=== PATIENT | male | born 1950 | race Caucasian/White ===

== ENCOUNTER 2017-10-30 14:32 | Emergency (ER) | payer MEDICARE, OTHER ==
--- NOTE | 2017-10-30 14:58 | ED Physician Documentation ---
Nausea/Vomiting/Diarrhea - HISTORIAN Historian: patient - HPI Stated Complaint: vomiting Chief Complaint: Nausea,Vomiting,Diarrhea Onset: hours (3) Duration: other (improved over last hour per pt ) Last known Well Date: 10/29/17 Last Known Well Time: 10:00 Last known Well Code/Unknown Code: Unknown Timing: gradual onset Context: denies: out of country travel, bad food, recent trauma Severity: mild Further Comments: yes (He states about 2-3 hours ago he did have 3-4 episodes of vomiting. he states he has no fever. No food expsosures. No sick contacts. He states that he has had no nasuea for about one hour . No complaints at this time. He is worried his b./p is too low. He did eat breakfast and a snack about one hour ago) - Associated Symptoms Vomiting: mild Diarrhea: mild (over last week "more loose than usual" stools ) Abdominal Pain: none - ROS CONST: none CVS/RESP: denies: shortness of breath, cough MS/SKIN/LYMPH: denies: rash NEURO/PSYCH: denies: headache, fainting - PAST HX Past History: other (HTN, hyperlipidemia , GERD ) Surgeries/Procedures: none Immunizations: UTD Allergies/Adverse Reactions: Allergies Allergy/AdvReac Type Severity Reaction Status Date / Time No Known Allergies Allergy Verified 10/30/17 14:51 Home Medications: Ambulatory Orders Medication Instructions Recorded Atorvastatin Calcium [Atorvastatin 40 mg PO DAILY 10/30/17 Calcium] Levothyroxine Sodium [Synthroid] 50 mcg PO DAILY 10/30/17 amLODIPine BESYLATE [Norvasc] 5 mg PO DAILY 10/30/17 - SOCIAL HX Smoking History: quit less than 1 year, cigarettes Alcohol Use: none Drug Use: marijuana (smells of that at this time ) - FAMILY HX Family History: none - VITAL SIGNS Vital Signs: Vital Signs Temp Pulse Resp BP Pulse Ox 98.4 F 85 18 126/69 98 10/30/17 14:46 10/30/17 15:22 10/30/17 15:22 10/30/17 15:22 10/30/17 15:22 - REVIEWED ASSESSMENTS Nursing Assessment Reviewed: Yes Vitals Reviewed: Yes ED Results Lab/Radiology - Orders Orders: ED Orders Category Date Time Status Ondansetron HCl Rapdis [Zofran Odt] Med 10/30/17 15:02 Discontinued 4 mg PO NOW ONE Nausea Physical Exam - EXAM General Appearance: no acute distress EENT: KIRA Neck: normal inspection Respiratory: no resp distress, chest non-tender, breath sounds normal CVS: reg rate & rhythm, heart sounds normal, equal pulses Abdomen: non-tender, no organomegaly, other (Bowel sounds normal in all quadrants ). No: guarding Back: non-tender Skin: warm/dry, normal color Extremities: non-tender, normal range of motion, no evidence of injury, no edema Neuro/Psych: oriented X3, CN's nml as tested, motor nml, sensation nml, mood/ affect nml Discharge Clincal Impression: Nausea and vomiting Qualifiers: Vomiting type: unspecified Vomiting Intractability: unspecified Qualified Code( s): R11.2 - Nausea with vomiting, unspecified Referrals: Primary Doctor,No [Primary Care Provider] - 2 Days Comments: 1l Zofran 4 mg every 8 hours as needed for nausea 2. increase fluids 3. bland diet advance as tolerated 4. See PCP in 2-4 days 5. Return to ER for increasing symptoms Condition: Stable Disposition: 01 HOME, SELF-CARE Decision to Admit: NO Date of Decison to Admit: 10/30/17 Decision Time: 15:18
[2017-10-30] MEDS ORDERED: ONDANSETRON HCL 4 MG TAB.RAPDIS PO ONE (15:02)
[2017-10-30 15:24] VITALS: BP 126/69
== END 2017-10-30 15:22 | disposition home or self-care (01) ==
LOC: ED 14:32
DX: R11.2 Nausea with vomiting, unspecified (principal)
CPT/HCPCS: 99283; A9270

== ENCOUNTER 2017-12-23 04:15 | Emergency (ER) | payer MEDICARE, OTHER ==
--- NOTE | 2017-12-23 04:50 | ED Physician Documentation ---
General Adult - HISTORIAN Historian: patient - HPI Stated Complaint: Shortness of air Chief Complaint: General Adult Additional Information: SOB for two weeks. Wakes in the middle of the night and can't go back to sleep. Not wheezing, but feels like he can't get enough air. Denies anxiety. HX HTN, HLD. Quit smoking 6 months ago. No treatment attempted. Mentions tightness in chest, like he can't breathe, but denies pain. No other associated signs. Pulse ox 97% on RA. Timing: still present - ROS CONST: sweating (but not new). denies: fever - SOCIAL HX Smoking History: cigarettes (30 years, quit several times; quit 6 months ago) Drug Use: marijuana - FAMILY HX Family History: No - VITAL SIGNS Vital Signs: Vital Signs Temp Pulse Resp BP Pulse Ox 96.9 F L 58 L 16 152/91 97 12/23/17 04:20 12/23/17 04:20 12/23/17 04:20 12/23/17 04:20 12/23/17 04:20 - REVIEWED ASSESSMENTS Nursing Assessment Reviewed: Yes Vitals Reviewed: Yes <JAYANT WISDOM - Last Filed: 12/23/17 06:55> - PAST HX Past History: hypertension, other (htn hypothryoid hi chol) - VITAL SIGNS Vital Signs: Vital Signs Temp Pulse Resp BP Pulse Ox 96.9 F L 58 L 16 152/91 97 12/23/17 04:20 12/23/17 04:20 12/23/17 04:20 12/23/17 04:20 12/23/17 04:20 <Adonis Mcdaniel - Last Filed: 12/23/17 09:11> - PAST HX Allergies/Adverse Reactions: Allergies Allergy/AdvReac Type Severity Reaction Status Date / Time No Known Allergies Allergy Verified 12/23/17 04:26 Home Medications: Ambulatory Orders Medication Instructions Recorded Atorvastatin Calcium [Atorvastatin 40 mg PO DAILY 10/30/17 Calcium] Levothyroxine Sodium [Synthroid] 50 mcg PO DAILY 10/30/17 amLODIPine BESYLATE [Norvasc] 5 mg PO DAILY 10/30/17 Progress - Progress Progress: Patient Study Name: CANDI GRANDA Date: December 23, 2017 5:06:46 AM CDT Modality Type: DX Gender: M Description: CHEST : 52 Institution: [facility] Physician: JAYANT WISDOM - ER Chest 2 views Date of Exam: December 23, 2017. History: PT STATES SOB X2 WEEKS (Hx) / ITS.REASON SOB 2 weeks Findings: No comparison studies are provided. The cardiac and mediastinal silhouettes are normal. The lungs are clear. There is no evidence of pulmonary infiltrate or pleural effusion. The trachea is midline and the aortic arch contour is normal. The pulmonary vascularity is within normal limits. There is a right lower lobe granuloma. Impression: No acute cardiopulmonary abnormality. Electronically signed on December 23, 2017 5:41:28 AM CDT by: Cas Mora [id number], care to Dr. cMdaniel. Awaiting second Trop I. <JAYANT WISDOM - Last Filed: 12/23/17 06:55> - Results/Orders Results/Orders: Had patient complete some physical activity- heart beat increased. <Adonis Mcdaniel - Last Filed: 12/23/17 09:11> ED Results Lab/Radiology - Orders Orders: ED Orders Category Date Time Status Place IV Lock 1T Care 12/23/17 04:42 Ordered CHEST 2VIEW [RAD] Stat Exams 12/23/17 Ordered CBC/PLATELET/DIFF Routine Lab 12/23/17 Ordered CMP Routine Lab 12/23/17 Ordered TROPONIN I (cTnI) Stat Lab 12/23/17 Ordered URINALYSIS Routine Lab 12/23/17 Ordered EKG WITH COMPARISON Stat Ther 12/23/17 Ordered <JAYANT WISDOM - Last Filed: 12/23/17 06:55> - Lab Results Lab Results: Second troponin completed- Negative Lab Results 12/23/17 12/23/17 12/23/17 07:00 06:45 06:35 WBC RBC Hgb Hct MCV MCH MCHC RDW Plt Count Neut % (Auto) Lymph % (Auto) [place] % (Auto) Eos % (Auto) Baso % (Auto) Neut # (Auto) Lymph # (Auto) [place] # (Auto) Eos # (Auto) Baso # (Auto) Reactive Lymphs % Reactive Lymphs # Sodium Potassium Chloride Carbon Dioxide BUN Creatinine Estimated Creat Clear Est GFR ( Amer) Est GFR (Non-Af Amer) Glucose Calcium Total Bilirubin AST ALT Alkaline Phosphatase Troponin I < 0.03 ng/mL L ng/mL (0.03-0.06) Total Protein Albumin Urine Color Yellow (YELLOW) Urine Appearance Clear (CLEAR) Urine pH 5.5 (5.0 - 8.0) Ur Specific [place] 1.015 (1.010-1.030) Urine Protein Negative mg/dL mg/dL (NEGATIVE) Urine Ketones Negative mg/dL mg/dL (NEGATIVE) Urine Occult Blood Negative (NEGATIVE) Urine Nitrite Negative (NEGATIVE) Urine Bilirubin Negative (NEGATIVE) Urine Urobilinogen 0.2 Eu Eu (0.2-1.0) Ur Leukocyte Esterase Negative (NEGATIVE) Urine Glucose Negative mg/dL mg/dL (NEGATIVE) Opiates Screen Negative ng/mL ng/mL (<300) Oxycodone Screen Negative ng/mL ng/mL (<100) Methadone Screen Negative ng/mL ng/mL (<200) Ur Barbiturates Screen Negative ng.mL ng.mL (<200) Tricyclic Antidepress Negative ng/mL ng/mL (<300) Phencyclidine Screen Negative ng/mL ng/mL (< 25) Amphetamines Screen Negative ng/mL ng/mL (<500) U Methamphetamines Scrn Negative ng/mL ng/mL (<500) MDMA Negative ng/mL ng/mL (<500) Benzodiazepines Screen Negative ng/mL ng/mL (<150) Urine Cocaine Screen Negative ng/mL ng/mL (<150) U Cannabinoids Screen Non negative ng/mL H ng/mL (< 50) 12/23/17 12/23/17 12/23/17 04:57 04:57 04:57 WBC 6.10 K/ul K/ul (4.00-12.00) RBC 4.86 M/ul M/ul (3.90-5.20) Hgb 15.9 g/dL g/dL (12.0-18.0) Hct 45.8 % % (37.0-53.0) MCV 94.2 fl fl (80.0-100.0) MCH 32.8 pg pg (28.0-34.0) MCHC 34.8 g/dL g/dL (30.0-36.0) RDW 12.4 % % (11.3-14.3) Plt Count 185 K/mm3 K/mm3 (130-400) Neut % (Auto) 63.4 % % (39.0-79.0) Lymph % (Auto) 24.4 % % (16.0-50.0) [place] % (Auto) 6.0 % % (0.0-11.0) Eos % (Auto) 3.5 % % (0.0-6.8) Baso % (Auto) 0.3 (0.0-1.5) Neut # (Auto) 3.9 # k/uL # k/uL (1.4-7.7) Lymph # (Auto) 1.5 # k/uL # k/uL (0.6-4.0) [place] # (Auto) 0.4 # k/uL # k/uL (0.0-0.9) Eos # (Auto) 0.2 # k/uL # k/uL (0.0-0.6) Baso # (Auto) 0.0 # k/uL # k/uL (0.0-0.5) Reactive Lymphs % 2.3 % % (0.0-5.0) Reactive Lymphs # 0.1 # k/uL # k/uL (0.0-0.8) Sodium 141 mmol/L mmol/L (136-145) Potassium 3.5 mmol/L mmol/L (3.5-5.1) Chloride 105 mmol/L mmol/L (98-107) Carbon Dioxide 27 mmol/L mmol/L (22-30) BUN 18 mg/dL mg/dL (9-20) Creatinine 0.90 mg/dL mg/dL (0.66-1.25) Estimated Creat Clear 90 Est GFR ( Amer) > 60 (60 - ) Est GFR (Non-Af Amer) > 60 (60 - ) Glucose 147 mg/dL H mg/dL (74-106) Calcium 9.8 mg/dL mg/dL (8.4-10.2) Total Bilirubin 0.3 mg/dL mg/dL (0.2-1.3) AST 29 U/L U/L (15-46) ALT 34 U/L U/L (13-69) Alkaline Phosphatase 48 U/L U/L (38-126) Troponin I < 0.03 ng/mL L ng/mL (0.03-0.06) Total Protein 6.9 g/dL g/dL (6.3-8.2) Albumin 4.1 g/dL g/dL (3.5-5.0) Urine Color Urine Appearance Urine pH Ur Specific [place] Urine Protein Urine Ketones Urine Occult Blood Urine Nitrite Urine Bilirubin Urine Urobilinogen Ur Leukocyte Esterase Urine Glucose Opiates Screen Oxycodone Screen Methadone Screen Ur Barbiturates Screen Tricyclic Antidepress Phencyclidine Screen Amphetamines Screen U Methamphetamines Scrn MDMA Benzodiazepines Screen Urine Cocaine Screen U Cannabinoids Screen - Orders Orders: ED Orders Category Date Time Status Place IV Lock 1T Care 12/23/17 04:42 Active CHEST 2VIEW [RAD] Stat Exams 12/23/17 Completed CBC/PLATELET/DIFF Routine Lab 12/23/17 04:57 Completed CMP Routine Lab 12/23/17 04:57 Completed DRUG SCREEN URINE MEDICAL ONLY Stat Lab 12/23/17 06:45 Completed TROPONIN I (cTnI) Stat Lab 12/23/17 04:57 Completed TROPONIN I (cTnI) Stat Lab 12/23/17 07:00 Completed UA MACRO DIP ONLY Routine Lab 12/23/17 06:35 Completed EKG WITH COMPARISON Stat Ther 12/23/17 Ordered <Adonis Mcdaniel - Last Filed: 12/23/17 09:11> General Adult Physical Exam - PHYSICAL EXAM GENERAL APPEARANCE: mild distress (anxious) EENT: eye inspection normal, ENT inspection normal, pharynx normal (Mallampati 2 ) NECK: normal inspection, supple RESPIRATORY: no resp distress, chest non-tender, breath sounds normal CVS: reg rate & rhythm, heart sounds normal, no murmur ABDOMEN: soft, no organomegaly, normal bowel sounds BACK: normal inspection SKIN: warm/dry, normal color EXTREMITIES: no evidence of injury, no edema NEURO: CN's nml as tested, motor nml, sensation nml, cognition normal <JAYANT WISDOM - Last Filed: 12/23/17 06:55> - PHYSICAL EXAM NECK: No: thyroid normal <Adonis Mcdaniel Last Filed: 12/23/17 09:11> Discharge <JAYANT WISDOM - Last Filed: 12/23/17 06:55> Decision to Admit: NO Decision Time: 08:02 <Adonis Mcdaniel Last Filed: 12/23/17 09:11> Clincal Impression: Bradycardia Referrals: Primary Doctor,No [Primary Care Provider] - 2 Days Additional Instructions: Follow up with primary care provider in the next 1-2 days Keep track of pulse and document to take to your doctor (educated patient on checking pulse and keeping a log of time, activity, symptoms and heart rate) Return to the ER if you experience shortness of breath or chest pain Condition: Good Disposition: 01 HOME, SELF-CARE
[2017-12-23 05:22] LABS: BASOPHILS % 0.3 (0.0-1.5); EOSINOPHILS % 3.5 % (0.0-6.8); MEAN CORPUSCULAR HEMOGLOBIN 32.8 pg (28.0-34.0); MEAN CORPUSCULAR VOLUME 94.2 fl (80.0-100.0); NEUTROPHILS # 3.9 # k/uL (1.4-7.7)
[2017-12-23 05:23] LABS: eGFR (African) > 60; eGFR (Non-African) > 60
--- NOTE | 2017-12-23 05:46 | Diagnostic Imaging Report ---
[facility] [id number] [facility].[address] [id number] Report Submission Date: December 23, 2017 5:41:28 AM CDT Patient Study Name: CANDI GRANDA Date: December 23, 2017 5:06:46 AM CDT Modality Type: DX Gender: M Description: CHEST : 52 Institution: [facility] Physician: JAYANT WISDOM - VIOLET Chest 2 views Date of Exam: December 23, 2017. History: PT STATES SOB X2 WEEKS (Hx) / ITS.REASON SOB 2 weeks Findings: No comparison studies are provided. The cardiac and mediastinal silhouettes are normal. The lungs are clear. There is no evidence of pulmonary infiltrate or pleural effusion. The trachea is midline and the aortic arch contour is normal. The pulmonary vascularity is within normal limits. There is a right lower lobe granuloma. Impression: No acute cardiopulmonary abnormality. Electronically signed on December 23, 2017 5:41:28 AM CDT by: Cas VILLAFANA
[2017-12-23 07:13] LABS: APPEARANCE,URINE CLEAR (CLEAR); COLOR,URINE YELLOW (YELLOW); OCCULT BLOOD,URINE NEGATIVE (NEGATIVE); PH URINE 5.5 (5.0 - 8.0); UROBILINOGEN URINE 0.2 Eu (0.2-1.0)
[2017-12-23 07:17] LABS: CANNABINOIDS NON NEGATIVE ng/mL (< 50); METHYLENEDIOXYMETHAMPHETAMINE NEGATIVE ng/mL (<500)
[2017-12-23 08:03] VITALS: BP 131/78
== END 2017-12-23 08:00 | disposition home or self-care (01) ==
LOC: ED 04:15
DX: R00.1 Bradycardia, unspecified (principal)
CPT/HCPCS: 36415; 71046; 80053; 81002; 84484; 85025; 99285; G0481; 80377; 99283; S1016

== ENCOUNTER 2018-10-01 17:50 | Emergency (ER) | payer MEDICARE, OTHER ==
[2018-10-01] MEDS ORDERED: Lidocaine 1% 5ml 10 MG/ML VIAL IJ ONE (17:57)
--- NOTE | 2018-10-01 17:58 | ED Physician Documentation ---
General Adult - HISTORIAN Historian: patient - HPI Chief Complaint: Laceration/Recheck/Suture (Lac to thumb) Additional Information: Patient is a 68-year-old male that presents to the ER with a laceration to the left thumb. He was laying down tile and cut his finger with a box knife. Bleeding is controlled. Onset: minutes Timing: still present Severity: mild Modifying Factors: steel box toe inserter - ROS CONST: no problems EYES/ENT: none CVS/RESP: none GI/: none MS/SKIN/LYMPH: none NEURO/PSYCH: denies: headache - PAST HX Past History: hypertension Surgeries/Procedures: none Immunizations: tetanus, UTD Allergies/Adverse Reactions: Allergies Allergy/AdvReac Type Severity Reaction Status Date / Time No Known Allergies Allergy Verified 12/23/17 04:26 Home Medications: Ambulatory Orders Medication Instructions Recorded Atorvastatin Calcium 40 mg PO DAILY 10/30/17 Levothyroxine Sodium [Synthroid] 50 mcg PO DAILY 10/30/17 amLODIPine BESYLATE [Norvasc] 5 mg PO DAILY 10/30/17 Cephalexin [Keflex] 500 mg PO Q6H #40 capsule 10/01/18 - SOCIAL HX Smoking History: less than 1 pack/day Alcohol Use: occasionally Drug Use: none - FAMILY HX Family History: No - VITAL SIGNS Vital Signs: Vital Signs Temp Pulse Resp BP Pulse Ox 98.4 F 106 H 18 131/97 97 10/01/18 17:50 10/01/18 19:02 10/01/18 19:02 10/01/18 19:02 10/01/18 19:02 - REVIEWED ASSESSMENTS Nursing Assessment Reviewed: Yes Vitals Reviewed: Yes Procedures Wound Location: upper extremity Wound Length: 3 cm to the left thumb pad Wound's Depth, Shape: flap Wound Explored: no foreign body removed Irrigated w/ Saline (ccs): 500 Betadine Prep?: Yes Anesthesia: 1% Lidocaine Volume of Anesthetic: 4 ml Wound Repaired With: sutures Suture Size/Type: 4:0 Number of Sutures: 5 Layer Closure?: No Sterile Dressing Applied?: Yes ED Results Lab/Radiology - Orders Orders: ED Orders Category Date Time Status Lidocaine 1% 5ml(IM or SUTURE) [Xylocaine] Med 10/01/18 17:57 Discontinued 50 mg IJ NOW ONE General Adult Physical Exam - PHYSICAL EXAM GENERAL APPEARANCE: mild distress EENT: eye inspection normal, ENT inspection normal, pharynx normal, KIRA NECK: normal inspection, supple RESPIRATORY: breath sounds normal CVS: heart sounds normal, equal pulses ABDOMEN: normal bowel sounds SKIN: warm/dry, normal color, other (lac to left thumb pad) EXTREMITIES: normal range of motion NEURO: oriented X3, CN's nml as tested, motor nml, sensation nml, mood/affect nml Discharge Clincal Impression: Thumb laceration Prescriptions: Cephalexin [Keflex] 500 mg PO Q6H #40 capsule Referrals: Primary Doctor,No [REFERRING] - 2 Days Additional Instructions: Take antibiotic as directed Keep affected area clean and dry Apply Triple antibiotic ointment with dressing changes Watch for signs of infection; redness/drainage Follow up with PCP to have sutures removed in 7-10 days Condition: Good Disposition: 01 HOME, SELF-CARE Decision to Admit: NO Decision Time: 19:02
[2018-10-01 19:06] VITALS: BP 131/97
== END 2018-10-01 18:57 | disposition home or self-care (01) ==
LOC: ED 17:50
DX: S61.012A Laceration without foreign body of left thumb without damage to nail, initial encounter (principal); W27.8XXA Contact with other nonpowered hand tool, initial encounter; Y93.89 Activity, other specified; Y92.9 Unspecified place or not applicable
CPT/HCPCS: 12002; 99282; 99283